=== PATIENT | female | born 1935 | race Caucasian/White ===

== ENCOUNTER → 2016-10-11 | Day surgery (SDC) | payer OTHER ==
[~2016-10-11] MED LIST: ALEVE PO; ALEVE220 M1 PO; AREDS PO; AZILECT1 MG PO; CARBIDOPA PO; CARBIDOPA-LEVO1 EAC1 PO; CENTRUM SILVER PO; DICLOFENAC SODI50 MG PO; DITROPAN XL5 M2 PO; EXELON6 MG PO; FUROSEMIDE40 MG PO; HYDROCHLOROTHIA25 MG PO; HYDROCODONE/A1 UDTA2; LISINOPRIL5 MG PO; MIRAPEX1.5 MG PO; NORVASC PO; OXYBUTYNIN5 MG/BOTTL PO; SINEMET CR 21 TAB.SA PO; TOPROL XL PO; TYLENOL ARTHRITIS PO; VITAMIN B122500 MCG PO; VOLTAREN50 MG PO; [UNRECOGNIZED DRUG - OTHER] PO
--- NOTE | ~2016-10-11 | OR ---
Unit #: [id number] #: [id number] Patient: GAIL MACHADO [id number] [address] [place], [place] [address] [id number] O MR#: [id number] NAME: GAIL MACHADO ROOM: Date of Procedure: 10/11/2016 Admission Date: 10/11/2016 Surgeon: Kike Aceves M.D. : 1935 Attending Physician: Lucas Aceves Primary Care Physician: Generic Doctor Not In [facility] SUR[facility] CENTER OPERATIVE NOTE PROCEDURE PERFORMED Lumbar epidural steroid injection under x-ray guided needle placement with provider administered conscious sedation. PREOPERATIVE DIAGNOSES 1. Acute lumbar radiculitis. 2. Spinal stenosis, lumbosacral spine. 3. Degenerative joint disease, lumbosacral spine. 4. Degenerative disk disease. INDICATIONS FOR PROCEDURE The patient presents today with a longstanding history of chronic lumbar radicular pain secondary to her underlying degenerative processes. She is generally fairly well managed medically with ongoing continuous conservative measures; however, she does occasionally experience exacerbations, which to date have only responded to interventional pain management procedures. She is currently experiencing just such an exacerbation which has failed to respond to her usual and ongoing conservative treatment. After discussing risks and benefits of proceeding today with a lumbar approach epidural steroid injection utilizing a dual needle access technique, the patient agreed this would be the appropriate course of action. DESCRIPTION OF PROCEDURE She was then taken to the operating room, where she was prepped and draped in a sterile manner. Standard monitors were applied. She was sedated with 1 mg of IV Versed initially and required additional mg of IV Versed throughout the duration of procedure. Lumbar epidural space was accessed at the L5-S1 and the L2-L3 levels using loss of resistance technique and x-ray guidance, and changed that to L3-4 levels. Following successful needle placement at the L3-L4 and the L5-S1 levels, the patient received an injectate containing 4 mL of normal saline and 40 mg of methylprednisolone at each level for a total injected volume of 8 mL of normal saline and 80 mg of methylprednisolone. She tolerated this procedure well. She was discharged home with followup instructions, which include return to this clinic as early as 01/10/2017 if we could be of further service to her. Dictated by... Kike Aceves M.D. [facility]/jaimel Unit #: [id number] #: [id number] Patient: GAIL MACHADO TD: 10/12/2016 02:43 JOB #: [id number] CC: Akhil Stone M.D. SUR[facility] CENTER OPERATIVE NOTE X Lucas Aceves MD PROCEDURE OPERATIVE NOTE
== END | disposition home or self-care (01) ==
LOC: CCSC 08:47
DX: G89.29 Other chronic pain (principal); M51.17 Intervertebral disc disorders with radiculopathy, lumbosacral region; M48.07 Spinal stenosis, lumbosacral region; M19.90 Unspecified osteoarthritis, unspecified site; Z98.41 Cataract extraction status, right eye; Z98.42 Cataract extraction status, left eye
CPT/HCPCS: J1040; J2250

== ENCOUNTER → 2016-10-23 | Outpatient (CLI) | payer OTHER ==
--- NOTE | ~2016-10-23 | XA30 ---
[facility] Service of [facility] RADIOLOGY TEXT RESULTS PATIENT: GAIL MACHADO LOCATION: [facility] : 37 UNIT #: [id number] AGE: [address]: Radha Lance SEX: F ORDER DR: [id number] [address] [place], [place] [address] [id number] O MR#: [id number] Acc #: [id number] NAME: GAIL MACHADO : 1935 SEX: F STUDY DATE/TIME: 10/23/2016 10:53 UNIT: [facility] ROOM: STUDY DESCRIPTION: XA Arthrocentesis Major Joint Attending Physician: Radha Lance P.A.-C. Referring Physician: Radha Lance P.A.-C. Ordering Physician: Radha Lance P.A.-C. Primary Care Physician: Kortney Saldaña Aprn MEDICAL IMAGING REPORT This report is preliminary unless electronic signature is present EXAM Fluoroscopically guided left hip joint injection INDICATION 81-year-old female with history of left hip pain and arthritis. Steroid injection requested. FLUORO TIME 0.3 minutes. Reference AK 16 mGy. TECHNIQUE The risks, benefits and alternatives of the procedure were discussed with the patient. Informed consent was obtained. In the procedure room, a time-out was performed confirming correct patient and procedure. All elements of maximum sterile barrier technique utilized according to guidelines appropriate for the procedure. FINDINGS Skin overlying the left hip was prepped and draped in usual sterile fashion. 1% Lidocaine utilized to anesthetize the skin and underlying subcutaneous tissues. Next, under fluoroscopic guidance, a 22-gauge needle was advanced into the hip joint space. A small amount of contrast was injected confirming satisfactory positioning. Next, 1 mL of 40 mg/mL Kenalog followed by 2 mL of Bupivacaine was injected into the hip joint space. The needle was removed and a sterile dressing was applied. No immediate complications. IMPRESSION Technically successful fluoroscopically guided left hip joint injection with steroid and local anesthetic. Dictated by... [facility] RADIOLOGY TEXT RESULTS PATIENT: GAIL MACHADO LOCATION: [facility] #: [id number] : 37 UNIT #: [id number] AGE: [address]: Radha Lance SEX: F ORDER DR: Ishmael Rhoades M.D. THIS IS AN ELECTRONICALLY VERIFIED REPORT Ishmael Rhoades M.D. at 10/23/2016 4:57 PM NOEL/jarrett TD: 10/23/2016 13:22 JOB #: [id number] MEDICAL IMAGING REPORT COPY
== END | disposition home or self-care (01) ==
LOC: CIVR 10:26
PROC: 3E0U33Z Introduction of Anti-inflammatory into Joints, Percutaneous Approach (ICD-10-PCS; principal; 2016-10-23)
PROC: 3E0U3BZ Introduction of Anesthetic Agent into Joints, Percutaneous Approach (ICD-10-PCS; 2016-10-23)
DX: M16.12 Unilateral primary osteoarthritis, left hip (principal)
CPT/HCPCS: 77002; J3301; Q9966

== ENCOUNTER → 2017-01-10 | Day surgery (SDC) | payer OTHER ==
--- NOTE | ~2017-01-10 | OR ---
Unit #: [id number] #: [id number] Patient: GAIL MACHADO [id number] [address] [place], [place] [address] [id number] O MR#: [id number] NAME: GAIL MACHADO ROOM: Date of Procedure: 01/10/2017 Admission Date: 01/10/2017 Surgeon: Kike Aceves M.D. : 1935 Attending Physician: Lucas Aceves Primary Care Physician: Kaylie Baker M.D. SUR[facility] CENTER OPERATIVE NOTE PROCEDURE PERFORMED Lumbar epidural steroid injection under x-ray guided needle placement with provider administered conscious sedation. PREOPERATIVE DIAGNOSES 1. Acute lumbar radiculitis. 2. Spinal stenosis, lumbosacral spine. 3. Herniated disk, L3-L4. 4. Degenerative joint disease, lumbosacral spine. 5. Degenerative disk disease, lumbosacral spine. INDICATIONS FOR PROCEDURE The patient presents today with longstanding history of chronic lumbar radicular pain secondary to her underlying degenerative processes. She is generally fairly well managed medically with ongoing conservative measures; however, she does occasionally experience exacerbations of her radicular pain either left side or right, which to date have only responded to epidural steroid injections. Her usual amount of relief is she got complete relief with the right-sided low L5 injections and has not had recurrence of those symptoms, so that would be 100% for at least 3 months. Her left-sided pain has returned during the course of last 2 to 4 weeks, so her relief there would be 100% for 6 to 8 weeks. It is advancing a crescendo pattern and is interfering with her activities of daily living. It has failed to respond to her usual and ongoing conservative measures. After discussing risks and benefits of proceeding today with a lumbar epidural steroid injection, the patient agreed this would be the appropriate course of action. DESCRIPTION OF PROCEDURE She was then taken to the operating room, where she was prepped and draped in a sterile manner. Standard monitors were applied. She was sedated with 1 mg of IV Versed and lumbar epidural space accessed at the L3-L4 level using loss of resistance technique and x-ray guidance. Needle placement was confirmed with injection of 2 mL of Omnipaque. There was good superior flow and slightly less good inferior flow, I would say approximately 75:25 distribution favoring the superior aspect. Total x-ray time for this needle placement at L3-L4 was 6 seconds. Following successful needle placement confirmation, the patient received an injectate containing 4 mL of normal saline, and 80 mg of methylprednisolone. She tolerated this procedure well. She was discharged home with followup instructions, which include an offer to return to this clinic as early as 04/18/2017 if we could be of further service to her. Unit #: [id number] #: [id number] Patient: GAIL MACHADO Dictated by... Jane Azevedo/jos TD: 01/10/2017 12:42 JOB #: [id number] CC: Akhil Stone M.D. SURGERY CENTER OPERATIVE NOTE Page 1 of 1 X Lucas Aceves MD X PROCEDURE OPERATIVE NOTE
== END | disposition home or self-care (01) ==
LOC: CCSC 09:57
DX: G89.29 Other chronic pain (principal); M51.17 Intervertebral disc disorders with radiculopathy, lumbosacral region; M47.27 Other spondylosis with radiculopathy, lumbosacral region; M48.07 Spinal stenosis, lumbosacral region; M51.16 Intervertebral disc disorders with radiculopathy, lumbar region; Z98.41 Cataract extraction status, right eye; Z98.42 Cataract extraction status, left eye; M19.90 Unspecified osteoarthritis, unspecified site; Z98.818 Other dental procedure status
CPT/HCPCS: J1040; J2250

== ENCOUNTER → 2017-01-15 | Outpatient (CLI) | payer OTHER ==
--- NOTE | ~2017-01-15 | XA30 ---
[facility] A Service of [facility] RADIOLOGY TEXT RESULTS PATIENT: GAIL MACHADO [facility] 37 UNIT #: [id number] AGE: [address]: DANNIELLE WATTS SEX: F ORDER DR: [id number] [facility] [address] [facility]. [place], [place] [address] [id number] O MR#: [id number] Acc #: [id number] NAME: GAIL MACHADO : 1935 SEX: F STUDY DATE/TIME: 01/15/2017 13:04 UNIT: [facility] ROOM: STUDY DESCRIPTION: XA Arthrocentesis Major Joint Attending Physician: Jan Lang Referring Physician: Jan Lang Ordering Physician: Jan Lang Primary Care Physician: Kaylie Baker M.D. MEDICAL IMAGING REPORT This report is preliminary unless electronic signature is present EXAM Fluoroscopically-guided left hip injection INDICATION Osteoarthritis. The patient had a prior left hip injection on October 23, 2016. 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 PROCEDURE The risks, benefits, and alternatives to the procedure are explained to the patient, and a signed, informed consent was obtained. The patient was placed supine on the angiographic table and was prepped and draped in the usual sterile fashion. Time-out was performed as per protocol. Skin and subcutaneous tissues were anesthetized with buffered lidocaine and a 22-gauge spinal needle was advanced into the joint space. Contrast was injected which confirmed location within the iliac joints. The needle consisted of a combination of lidocaine and bupivacaine and Depo-Medrol. The needle was then removed and manual pressure was applied until hemostasis was obtained. Total fluoroscopy time was 0.3 minutes. AK is 5 mGy. IMPRESSION Mild technically successful fluoroscopically-guided left hip injection as noted above. Fluoroscopy was used during the procedure and permanent images were saved. Dictated by... Lynette Banda M.D. THIS IS AN ELECTRONICALLY VERIFIED REPORT Lynette Banda M.D. at 01/18/2017 3:40 PM AFF/aa [facility] A Service of [facility] & [facility] RADIOLOGY TEXT RESULTS PATIENT: GAIL MACHADO LOCATION: [facility] #: [id number] : 37 UNIT #: [id number] AGE: [address]: DANNIELLE WATTS SEX: F ORDER DR: TD: 01/16/2017 17:31 JOB #: [id number] MEDICAL IMAGING REPORT Page 1 of 1 COPY
== END | disposition home or self-care (01) ==
LOC: CIVR 12:43
PROC: 3E0U33Z Introduction of Anti-inflammatory into Joints, Percutaneous Approach (ICD-10-PCS; principal; 2017-01-15)
PROC: 3E0U3BZ Introduction of Anesthetic Agent into Joints, Percutaneous Approach (ICD-10-PCS; 2017-01-15)
DX: M16.12 Unilateral primary osteoarthritis, left hip (principal)
CPT/HCPCS: 77002; J1030; Q9966

== ENCOUNTER → 2017-04-18 | Day surgery (SDC) | payer OTHER ==
--- NOTE | ~2017-04-18 | OR ---
Unit #: [id number] #: [id number] Patient: GAIL MACHADO [id number] [address] [place], [place] [address] [id number] O MR#: [id number] NAME: GAIL MACHADO ROOM: Date of Procedure: 04/18/2017 Admission Date: 04/18/2017 Surgeon: Kike Aceves M.D. : 1935 Attending Physician: Kike Aceves M.D. Referring Physician: Kike Aceves M.D. Primary Care Physician: Kaylie Baker M.D. SURGERY CENTER OPERATIVE NOTE PROCEDURE PERFORMED Lumbar epidural steroid injection under x-ray guided needle placement with provider administered conscious sedation. PREOPERATIVE DIAGNOSES 1. Acute lumbar radiculitis. 2. Spinal stenosis, lumbosacral spine. 3. Degenerative joint disease, lumbosacral spine. 4. Degenerative disk disease, lumbosacral spine. INDICATIONS FOR PROCEDURE The patient presents today with longstanding history of chronic lumbar radicular pain secondary to her underlying degenerative processes. She is generally fairly well managed medically with ongoing medical management as well as self-directed physical activities; however, she does occasionally experience exacerbations, which breakthrough this ongoing continuous conservative management and to date have only responded to epidural steroid injections. Her usual amount of relief is 60% to 80% for 6 to 8 weeks. She presents today with a 3 to 6 week history of crescendo pattern lumbar radicular pain, which is consistent with past exacerbations and consistent with her x-ray studies. She has broken through her ongoing conservative management and presents today stating she has began to have negative impact her activities of daily living. She states she has further having a new onset pain, which is in the left anterior hip, which has been previously helped by steroid injections into her hip joint. At this point, we discussed proceeding with a dual needle technique epidural steroid injection as well as instructed her to return to her primary care provider for potential referral to an orthopedist for evaluation of her left hip arthritis. DESCRIPTION OF PROCEDURE After these discussions, the patient was taken to the operating room, where she was prepped and draped in a sterile manner. Standard monitors were applied. She was sedated with 2 mg of IV Versed and lumbar epidural space accessed at the L5-S1 and L3-L4 interspaces using loss of resistance technique and x-ray guidance. Needle placement was confirmed with injection of 2 mL of Omnipaque at each site. There were good superior and inferior flow at each injectate site. Total x-ray time for this dual needle placement was 12 seconds. Following successful needle placement confirmation, the patient received an injectate containing 4 mL normal saline and 40 mg of methylprednisolone at each site for total injectate volume of 8 mL normal saline and 80 mg of methylprednisolone. She tolerated this procedure well. She was discharged home with followup Unit #: [id number] #: [id number] Patient: GAIL MACHADO instructions, which include an offer to return to this clinic on 07/25/2017 if we could be of further service to her. Dictated by... Jane Azevedo/jos TD: 04/18/2017 19:32 JOB #: [id number] SURGERY CENTER OPERATIVE NOTE Page 1 of 1 X Lucas Aceves MD X PROCEDURE OPERATIVE NOTE
== END | disposition home or self-care (01) ==
LOC: CCSC 08:34
DX: G89.29 Other chronic pain (principal); M51.17 Intervertebral disc disorders with radiculopathy, lumbosacral region; M47.27 Other spondylosis with radiculopathy, lumbosacral region; M48.07 Spinal stenosis, lumbosacral region; M19.90 Unspecified osteoarthritis, unspecified site; Z79.899 Other long term (current) drug therapy; Z98.41 Cataract extraction status, right eye; Z98.42 Cataract extraction status, left eye; Z96.1 Presence of intraocular lens; Z98.818 Other dental procedure status
CPT/HCPCS: J1040; J2250

== ENCOUNTER → 2017-04-25 | Outpatient (CLI) | payer OTHER ==
--- NOTE | ~2017-04-25 | XA30 ---
[facility] A Service of [facility] RADIOLOGY TEXT RESULTS PATIENT: GAIL MACHADO [facility] : 37 UNIT #: [id number] AGE: [address]: DANNIELLE WATTS SEX: F ORDER DR: [id number] [facility] [address] [place], [place] [address] [id number] O MR#: [id number] Acc #: [id number] NAME: GAIL MACHADO : 1935 SEX: F STUDY DATE/TIME: 04/25/2017 11:00 [facility] ROOM: STUDY DESCRIPTION: XA Arthrocentesis Major Joint Attending Physician: Jan Lang Referring Physician: Adrianna Frank M.D. Ordering Physician: Jan Lang Primary Care Physician: Kaylie Baker M.D. MEDICAL IMAGING REPORT This report is preliminary unless electronic signature is present EXAM Left hip injection with Depo-Medrol and Marcaine 04/25/2017 HISTORY Left hip pain, osteoarthritis and chronic avascular necrosis. PROCEDURE Informed consent was obtained from the patient. Real-time fluoroscopic guidance was utilized with a total of 0.3 minutes of fluoroscopy and a single spot image. Standard sterile technique was utilized with sterile preparation, barrier draping and local anesthesia was provided with 1% lidocaine. A 22-gauge spinal needle was advanced into the hip joint, intraarticular needle tip position confirmed with contrast injection, followed by injection of 3 mL of 1% lidocaine, 40 mg of Depo-Medrol and 4 mg of dexamethasone. There are no complications. The patient tolerated the procedure well and reported a pre-procedure pain level of 9/10 and postprocedure pain level of 7/10. IMPRESSION Technically successful left hip injection with dexamethasone, Depo-Medrol and lidocaine without complication. Dictated by... Hilario Ansari M.D. THIS IS AN ELECTRONICALLY VERIFIED REPORT Hilario Ansari M.D. at 04/26/2017 2:06 PM TEV/jarrett [facility] A Service of [facility] & [facility] RADIOLOGY TEXT RESULTS PATIENT: GAIL MACHADO LOCATION: [facility] : 37 UNIT #: [id number] AGE: [address]: DANNIELLE WATTS SEX: F ORDER DR: TD: 04/26/2017 06:45 JOB #: [id number] MEDICAL IMAGING REPORT Page 1 of 1 COPY
== END | disposition home or self-care (01) ==
LOC: CIVR 10:26
DX: M16.12 Unilateral primary osteoarthritis, left hip (principal); M87.80 Other osteonecrosis, unspecified bone
CPT/HCPCS: 77002; J1030; J1100; Q9967